=== PATIENT | female | born 1970 | race Caucasian/White ===

== ENCOUNTER 2017-01-08 18:32 | Emergency (ER) | payer OTHER ==
[~2017-01-08] VITALS: Ht 154.9 cm; Wt 93.5 kg
[~2017-01-08 18:32] MED LIST: CIPR500T4 PO; IBUP-1542 PO
[2017-01-08 18:58] VITALS: Ht 154.9 cm; Wt 93.5 kg
[2017-01-08] MEDS ORDERED: HYDR-906 PO (19:23)
[2017-01-08] MEDS ORDERED: IBUP-1542 PO (19:23)
[2017-01-08] MEDS ORDERED: FLUT9.9S NASAL (19:23)
--- NOTE | 2017-01-08 19:35 | ERD ---
ER Documentation Chief Complaint Date/Time DATE: 01/08/17 TIME: 19:30 Chief Complaint LEFT EAR PAIN X2 DAYS HPI This is a 46-year-old female presents to the ER with left ear pain that started earlier today. [place] that she [place] experiencing pain after she came down. Her right ear went back to normal however her left ear is extremely painful. Patient states that she feels as if there is pressure in her ear. Pain is constant and severe. Pain is nonradiating. Patient denies any fevers or chills. She denies any discharge from her ears. ROS 12 point review of systems was done, all negative except per HPI. Medications Home Meds Active Scripts Ibuprofen* (Motrin*) 600 Mg Tab, 600 MG PO Q6, #30 TAB Prov:DEL KARIMI 01/08/17 Hydrocodone/Acetaminophen (Edwards 5-325 Tablet) 1 Each Tablet, 1 TAB PO Q6H Y for PAIN, #20 TAB Prov:DEL KARIMI 01/08/17 Fluticasone Propionate (Flonase Allergy Relief) 9.9 Ml [place].susp, 1 SPRAY NASAL BID for 7 Days, #1 BOTTLE TO EACH NOSTRIL Prov:DEL KARIMI 01/08/17 Ibuprofen* (Motrin*) 600 Mg Tab, 600 MG PO Q6, #20 TAB Prov:STEPHANIE KHAN PA-C 02/28/15 Ciprofloxacin Hcl* (Ciprofloxacin Hcl*) 500 Mg Tablet, 500 MG PO BID for 7 Days , TAB Prov:STEPHANIE KHAN PA-C 02/28/15 Allergies Allergies: Coded Allergies: No Known Allergy (Unverified , 01/08/17) PMhx/Soc Hx Alcohol Use: No Hx Substance Use: No Hx Tobacco Use: No Physical Exam Vitals Vital Signs Date Time Temp Pulse Resp B/P Pulse Ox O2 Delivery O2 Flow Rate FiO2 01/08/17 18:58 99.0 99 18 139/84 99 Physical Exam GENERAL: The patient is well developed and appropriate for usual state of health , in no apparent distress. HEENT: Atraumatic. In the left tympanic membrane there is some blood seen. Possibly a small microperforation. CHEST: Clear to auscultation bilaterally. There are no rales, wheezes or rhonchi. HEART: Regular rate and rhythm. No murmurs, clicks, rubs or gallops. NEURO: Alert and oriented. SKIN: There is no apparent rash or petechia. The skin is warm and dry. Procedures/MDM This is a 46-year-old female presents to the ER with ear pain. Patient may have a small microperforation of the tympanic membrane. At this time there is no evidence of otitis media or any other infection. Patient will be sent home with Edwards, ibuprofen, Flonase. I discussed this case with Dr. Garcia, and he agrees with my medical decision making. Patient is to follow-up with her primary care doctor within 1-2 days or return to ER sooner symptoms worsen. Patient understands and agrees with plan. Departure Diagnosis: Primary Impression: Eustachian tube dysfunction Condition: Stable Patient Instructions: Ruptured Tm, Traumatic Additional Instructions: Llame al doctor MAANA y isidoro terry ODALYS PARA DENTRO DE 1-2 FRANCO.Dgale a la secretaria que nosotros le instruimos hacer esta odalys.Avise o llame si holliday condicin se empeora antes de la odalys. Regresa aqui si peor o no mejor. DEL KARIMI Jan 08, 2017 19:35
== END 2017-01-08 19:25 | disposition home or self-care (01) ==
LOC: E/R 18:32
DX: H69.92 Unspecified Eustachian tube disorder, left ear (principal)
CPT/HCPCS: 99283